=== PATIENT | male | born 1980 | race African-American/Black ===

== ENCOUNTER 2023-04-03 03:20 | Emergency (ER) | payer BC, OTHER ==
[2023-04-03] MEDS ORDERED: Dexamethasone 4 MG TAB ONE (04:14)
[2023-04-03] MEDS ORDERED: Ketorolac Tromethamine 30 MG/ML VIAL ONE (06:13)
[2023-04-03 06:14] LABS: SARS-CoV-2 NAA Rapid Test DETECTED (NotDetected)
== END 2023-04-03 06:38 | disposition home or self-care (01) ==
LOC: CSHERS 03:20
DX: U07.1 COVID-19 (principal); F17.210 Nicotine dependence, cigarettes, uncomplicated
CPT/HCPCS: 96372; 99283; J1885; J8540; U0002

== ENCOUNTER 2023-07-31 11:10 | Emergency (ER) | payer OTHER ==
[2023-07-31 12:18] LABS: SARS-CoV-2 NAA Rapid Test Not Detected (NotDetected)
[2023-07-31] MEDS ORDERED: Acetaminophen 500 MG TAB ONE (12:28)
== END 2023-07-31 12:41 | disposition home or self-care (01) ==
LOC: CSHERS 11:10
DX: J10.1 Influenza due to other identified influenza virus with other respiratory manifestations (principal); F17.210 Nicotine dependence, cigarettes, uncomplicated
CPT/HCPCS: 99283

== ENCOUNTER 2024-08-04 09:29 | Emergency (ER) | payer OTHER ==
[2024-08-04] MEDS ORDERED: Acetaminophen 325 MG TAB ONE (09:55)
== END 2024-08-04 10:50 | disposition home or self-care (01) ==
LOC: CSHERS 09:29
DX: M25.461 Effusion, right knee (principal); F17.210 Nicotine dependence, cigarettes, uncomplicated
CPT/HCPCS: 99283

== ENCOUNTER 2024-11-19 17:20 | Emergency (ER) | payer OTHER ==
[2024-11-19] MEDS ORDERED: Acetaminophen 500 MG TAB ONE (17:37)
== END 2024-11-19 18:38 | disposition home or self-care (01) ==
LOC: CSHERS 17:20
DX: S67.01XA Crushing injury of right thumb, initial encounter (principal); F17.210 Nicotine dependence, cigarettes, uncomplicated; X58.XXXA Exposure to other specified factors, initial encounter
CPT/HCPCS: 99283